=== PATIENT | female | born 1990 | race Hispanic/Latino ===

== ENCOUNTER 2018-08-10 20:38 | Emergency (ER) | payer BC ==
[~2018-08-10] VITALS: Ht 165.1 cm; Wt 78.9 kg
[2018-08-10 22:43] LABS: INFLUENZAE A&B ANTIGEN (RAPID) NEGATIVE (NEGATIVE); STREPTOCOCCUS GRP A ANTIGEN POSITIVE (NEGATIVE)
[2018-08-10] MEDS ORDERED: IBUPROFEN 600 MG TAB PO STA (23:09)
[2018-08-11 00:40] VITALS: BP 139/94
== END 2018-08-11 00:50 | disposition home or self-care (01) ==
LOC: ER 20:38
DX: J02.0 Streptococcal pharyngitis (principal)
CPT/HCPCS: 83518; 87400; 99283

== ENCOUNTER 2025-05-04 23:34 | Emergency (ER) | payer SELFPAY ==
[~2025-05-04] VITALS: Ht 165.1 cm; Wt 78.9 kg
[2025-05-04 23:40] VITALS: PULSE 82; RESP 20; TEMP 98.5
[2025-05-04] MEDS: DIAZEPAM INJ 5 MG/ML 2 ML IM STA (23:58)
[2025-05-05] MEDS ORDERED: VALIUM5 MG PO (01:04)
[2025-05-05 01:06] VITALS: BP 144/87; PULSE 73; RESP 17; TEMP 98.2; O2SAT 100
== END 2025-05-05 01:17 | disposition home or self-care (01) ==
LOC: ER 23:46
DX: M54.2 Cervicalgia (principal); S13.4XXA Sprain of ligaments of cervical spine, initial encounter; X58.XXXA Exposure to other specified factors, initial encounter; M41.9 Scoliosis, unspecified; E66.9 Obesity, unspecified; F17.210 Nicotine dependence, cigarettes, uncomplicated
CPT/HCPCS: 70450; 72125; 99283; J3360